=== PATIENT | male | born 2000 | race Caucasian/White ===

== ENCOUNTER 2023-12-24 14:28 | Emergency (ER) | payer SELFPAY | END 2023-12-24 16:40 | disposition home or self-care (01) | LOC: CSHERS 14:28 | DX: J01.90 Acute sinusitis, unspecified (principal); J20.9 Acute bronchitis, unspecified | CPT/HCPCS: 36416; 71046; 85379; 87428 ==

== ENCOUNTER 2024-12-17 14:00 | Emergency (ER) | payer OTHER, SELFPAY | END 2024-12-17 14:31 | disposition home or self-care (01) | LOC: CSHERS 14:00 | DX: B34.9 Viral infection, unspecified (principal) | CPT/HCPCS: 99283 ==